=== PATIENT | female | born 2000 | race Asian ===

== ENCOUNTER 2024-12-23 16:44 | Emergency (ER) | payer BC ==
[2024-12-23] MEDS ORDERED: Cephalexin 500 MG CAP ONE (17:36)
[2024-12-23] MEDS ORDERED: Sulfameth/Trimethoprim DS 800-160mg TAB ONE (17:36)
== END 2024-12-23 17:45 | disposition home or self-care (01) ==
LOC: MADERS 16:44
DX: L02.214 Cutaneous abscess of groin (principal); F41.9 Anxiety disorder, unspecified
CPT/HCPCS: 99283